=== PATIENT | female | born 1985 | race Caucasian/White ===

== ENCOUNTER 2024-02-15 09:15 | Outpatient (AMB) | payer OTHER, SELFPAY ==
--- NOTE | 2024-02-15 09:18 | MHC.PC.OV ---
Vital Signs 02/15/24 09:19 Height 5 ft 6 in Weight 176 lb BMI 28.4 BP 110/72 Blood Pressure Location Lt brachial Position Sitting Pulse 74 Pulse Source Pulse Oximeter Pulse Oximetry (%) 99 Oxygen Delivery Method Room Air Intake Visit Reasons: Est. Care requesting PE Intake Note: pt is here to establish care. Requesting PE. Pap done w/ Ariana. Unknown date Allergies kiwi Allergy (Intermediate, Verified 02/15/24 09:37) Itching apples Allergy (Intermediate, Uncoded 02/15/24 09:37) Itching Medication List - Last Reconciled 02/15/24 by LAYO Zepeda No Known Home Meds Tobacco use date assessed: 02/15/24 Dental Screening Dental Screen Date: 02/15/24 Did you have a dental visit in the last 12 months?: No Did you have a dental problem in the last 6 months where you did not have access to dental care?: No Was dental information given to patient?: No HPI HPI Comments History of Present Illness Details Patient is a 39-year-old female in today for physical exam who I am meeting for the 1st time. Patient is up-to-date with the TD immunization. Patient is due for Pap smear, will refer. Patient is due for mammogram, will order. Will order fasting labs. PFSH Surgical History H/O dilation and curettage Family History Mother CVA (cerebral vascular accident) Father Hypertension Maternal Uncle FH: kidney cancer Social History Housing: House Patient Tobacco Use Status: Former Tobacco user e-Cigarette/Vaping Use: Currently Using service: No Current occupational status: employed Current occupational exposures/hazards: No Cognitive needs: No Hearing needs: No Vision needs: No Questionnaire PHQ-9 Over the last 2 weeks, how often have you been bothered by any of the following problems? 1. Little interest or pleasure in doing things: not at all 2. Feeling down, depressed, or hopeless: not at all 3. Trouble falling or staying asleep, or sleeping too much: not at all 4. Feeling tired or having little energy: not at all 5. Poor appetite or overeating: not at all 6. Feeling bad about yourself - or that you are a failure or have let yourself or your family down: not at all 7. Trouble concentrating on things, such as reading the newspaper or watching television: not at all 8. Moving or speaking so slowly that other people could have noticed. Or the opposite - being so fidgety or restless that you have been moving around a lot more than usual: not at all 9. Thoughts that you would be better off or of hurting yourself in some way: not at all Total score: 0 Depression Screening Interpretation: Negative Depression Screening Done: Yes 63323 - PHQ-9 Billing: Yes Source: Developed by Drs. Marquise Hernandez, Lorraine Grewal, Will Subramanian and colleagues, with an educational norma from [employer]. Thrive Questionnaire Date Thrive assessed: 02/15/24 I am a: Patient What is your living situation today?: I have a steady place to live Within the past 12 months, did the food you bought not last and you didn't have the money to get more?: Never true Within the past 12 months, did you worry whether your food would run out before you got money to buy more?: Never true Do you have trouble paying for medicines?: No Do you have trouble getting transportation to medical appointments?: No Do you have trouble paying your heating and electricity bill?: No Do you have trouble taking care of your child, family member or friend?: No Do you have trouble with day-to-day activities such as bathing, preparing meals, shopping, managing finances, etc.?: No Are you currently unemployed and looking for a job?: No Are you interested in more education?: No Please select the resources that you would like help with: None THRIVE Score: 0 AUDIT C Alcohol Use Questionnaire (AUDIT-C) 1. How often do you have a drink containing alcohol?: Monthly or less 2. How many drinks containing alcohol do you have on a typical day when you are drinking?: 3 or 4 3. How often do you have six or more drinks on one occasion?: Never Total Score: 2 MARIA TERESA-7 AMB Questionnaire MARIA TERESA-7 Date MARIA TERESA - 7 assessed: 02/15/24 Feeling nervous, anxious, or on edge: 0 = Not at all Not being able to stop or control worryin = Not at all Worrying too much about different things: 0 = Not at all Trouble relaxin = Not at all Being so restless that it is hard to sit still: 0 = Not at all Becoming easily annoyed or irritable: 0 = Not at all Feeling afraid as if something awful might happen: 0 = Not at all Total MARIA TERESA-7 score (0-4 normal; 5-9 mild; 10-14 moderate; 15-21 severe): 0 Source: Developed by Drs. Marquise Hernandez, Lorraine Grewal, Will Subramanian and colleagues, with an educational norma from [employer]. MARIA TERESA-7 Assessment Billing MARIA TERESA-7 Assessment Tool: MARIA TERESA-7 Assessment 34510 Review of Systems Const All systems reviewed & are unremarkable except as noted in HPI and below Physical exam (Primary Care) Vital Signs: Last Vital Signs Pulse 74 02/15/24 09:19 BP 110/72 02/15/24 09:19 Pulse Ox 99 02/15/24 09:19 Oxygen Delivery Method Room Air 02/15/24 09:19 Care Plan Goal for BP management: Blood pressure is controlled. BMI result Body Mass Index 28.4 Depression Screening Interpretation: Negative Const Other: Appearance: Alert.? Oriented X3.? No acute distress.? Head: Normocephalic, atraumatic, no step-offs or deformities Eyes: Pupils equal, round and reactive to light.? ENT: Pharynx normal.?TM intact and pearly ribeiro. Neck: Normal inspection.? Neck supple.?Full ROM. CVS: Normal heart rate and rhythm.? Pulses normal.? Respiratory: No respiratory distress.? Breath sounds normal.? Abdomen: Soft and nontender.? Skin: Skin warm and dry.? Normal skin color.? Normal skin turgor.? Extremities: No lower extremity edema.? No calf ttp. 5/5 strength to bilateral upper and lower extremities Back: No midline tenderness, no C-spine tenderness, full range of motion, no CVA tenderness bilaterally Neuro: Oriented X 3.? No motor deficit.? No sensory deficit. CN 2-12 intact Assessment and Plan Assessment & Plan (1) Physical exam: Comment: Patient is up-to-date with the TD immunization. Patient is due for Pap smear, will refer. Patient is due for mammogram, will order. Will order fasting labs. Code(s): Z00.00 - Encounter for general adult medical examination without abnormal findings (2) Constipation: Comment: patient reports constipation is increased with poor diet. Patient has been instructed to increase fiber intake, can utilize senna. Code(s): K59.00 - Constipation, unspecified Qualifiers: Constipation type: unspecified constipation type Qualified Code(s): K59.00 - Constipation, unspecified Plan Will follow up with lab results Orders: Orders Vitamin B6 Today Z13.21 - Encounter for screening for nutritional disorder Complete Blood Count Auto Diff Today Z13.0 - Encounter for screening for diseases of the blood and blood-forming organs and certain disorders involving the immune mechanism Comprehensive Met. Panel Today Z13.0 - Encounter for screening for diseases of the blood and blood-forming organs and certain disorders involving the immune mechanism Lipid Panel Today Z13.220 - Encounter for screening for lipoid disorders MM tomosynthesis screening BI Today Z12.31 - Encounter for screening mammogram for malignant neoplasm of breast MMR IgG Measles Mumps Rubella Today Z11.59 - Encounter for screening for other viral diseases Vitamin D 25-OH (D2 and D3) Today Z13.21 - Encounter for screening for nutritional disorder Vitamin B12 Today Z13.21 - Encounter for screening for nutritional disorder UA CC w/rflx Micro + Cult Today Z13.89 - Encounter for screening for other disorder TSH reflex Free T4 Today Z13.29 - Encounter for screening for other suspected endocrine disorder Referrals CLINICAL LABORATORY ASSISTANT Referral Z12.4 - Encounter for screening for malignant neoplasm of cervix Coding Level of Care Code New Pt Prev Care 40-64y(85116) Diagnoses Physical exam Z00.00 Constipation, unspecified constipation type K59.00 Constipation type: unspecified constipation type Additional Codes MARIA TERESA-7 Assessment Billing - MARIA TERESA-7 Assessment Tool: MARIA TERESA-7 Assessment 08002 ([id number]) Time Spent (min) 26
[2024-02-15 09:19] VITALS: BP 110/72; PULSE 74; O2SAT 99; BMI 28.4
== END 2024-02-15 09:53 | disposition home or self-care (01) ==
PROVIDERS: PCP Internal Medicine; Visit Provider Nurse Practitioner Primary Care
DX: Z00.00 Encounter for general adult medical examination without abnormal findings (principal); K59.00 Constipation, unspecified
CPT/HCPCS: 99386

== ENCOUNTER 2024-02-16 10:01 | Outpatient (REF) | payer OTHER, SELFPAY ==
[2024-02-16 13:09] LABS: Appearance Urine Turbid; Color Urine Yellow; Glucose Urine UA Negative (Negative); Leukocyte Esterase Urine Small (1+) (Negative); Nitrite Urine Negative (Negative); Specific Gravity - Urine 1.025 (1.005-1.025); UMIC TRIGGER UACC YES; Urine Blood Negative (Negative); Urine Ketones Negative (Negative); Urine Protein Negative (Neg-Trace)
[2024-02-16 13:10] LABS: MANUAL DIFF FLAG NO
[2024-02-16 13:31] LABS: Basophils Percent Auto 0.6 % (0-2); Eosinophils Absolute Auto 0.1 X10*3/uL (0.0-0.4); Eosinophils Percent Auto 1.2 % (0-4); Hematocrit 41.6 % (37.0-47.0); Imm Gran Abs Auto 0.03 X10*3/uL (0.00-0.03); Imm Gran Pct Auto 0.4 % (0.0-0.4); Lymphocytes Absolute Auto 1.8 X10*3/uL (1.2-4.9); Mean Corpuscular HGB Conc 33.7 g/dl (31.0-35.0); Mean Corpuscular Hemoglobin 31.1 pg (27.0-33.0); Mean Corpuscular Volume 92.4 fL (80.0-98.0); Mean Platelet Volume 11.3 fL (9.4-12.3); Monocytes Absolute Auto 0.4 X10*3/uL (0.1-1.2); Monocytes Percent Auto 5.5 % (2-11); Neutrophils Absolute Auto 4.6 x10*3/uL (2.0-8.3); Neutrophils Percent Auto 66.3 % (45-73); Platelet Count 263 X10*3/uL (160-400); Red Cell Distribution Width 11.9 % (11.0-16.0); White Blood Count 6.9 X10*3/uL (4.8-10.8)
[2024-02-16 13:35] LABS: Bacteria Urine Trace (None Seen); Hyaline Casts Urine 0-2 /LPF (0-2); RBC Urine 0-2 /HPF (0-2); UACC Culture Trigger YES; WBC Urine 0-5 /HPF (0-5)
[2024-02-16 13:56] LABS: Alanine Aminotransferase 14 U/L (0-31); Albumin Level 4.4 g/dL (3.5-5.0); Alkaline Phosphatase 57 U/L (39-117); Anion Gap 12 (12-20); Aspartate Amino Transferase 11 U/L (5-31); Bilirubin Total 0.9 mg/dL (0.0-1.0); Blood Urea Nitrogen 14 mg/dL (9-16); Calcium 9.3 mg/dL (8.4-10.2); Carbon Dioxide 21 mmol/L (22-29); Chloride 111 mmol/L (96-108); Cholesterol 155 mg/dL (<200); Estimated Glomerular Filt Rate > 60; Glucose Random 88 mg/dL (60-115); HDL Cholesterol 51 mg/dL (>40); LDL Cholesterol Calculated 91 mg/dL (<100); Sodium 140 mmol/L (135-145); TSH reflex Free T4 2.75 uIU/mL (0.32-4.0); Total Protein 7.2 g/dL (6.5-8.0); Triglycerides 67 mg/dL (<150)
[2024-02-16 14:19] LABS: Vitamin B12 288 pg/mL (200-900)
[2024-02-20 16:48] LABS: Vitamin D 25-OH, D2 <4 ng/mL; Vitamin D 25-OH, D3 24 ng/mL; Vitamin D 25-OH, Total 24 ng/mL (30-100)
[2024-02-21 14:48] LABS: Vitamin B6 16.4 ng/mL (2.1-21.7)
== END 2024-02-16 10:02 | disposition home or self-care (01) ==
LOC: HO.HMGCLDS 10:01
PROVIDERS: PCP Internal Medicine; Visit Provider Nurse Practitioner Primary Care
DX: Z13.0 Encounter for screening for diseases of the blood and blood-forming organs and certain disorders involving the immune mechanism (principal); Z13.220 Encounter for screening for lipoid disorders; Z13.21 Encounter for screening for nutritional disorder; Z13.29 Encounter for screening for other suspected endocrine disorder; Z11.59 Encounter for screening for other viral diseases
CPT/HCPCS: 36415; 80053; 80061; 81001; 82306; 82607; 84207; 84443; 85025; 86735; 86762; 86765; 87086

== ENCOUNTER 2025-02-21 10:18 | Outpatient (AMB) | payer OTHER, SELFPAY ==
[2025-02-21 10:24] VITALS: BP 118/76; PULSE 85; TEMP 37; O2SAT 98; BMI 29.9
--- NOTE | 2025-02-21 10:24 | A.OFFPC_ITS ---
Vital Signs 02/21/25 10:24 Height 5 ft 6 in Weight 185 lb BMI 29.9 BP 118/76 Blood Pressure Location Lt brachial Position Sitting Pulse 85 Pulse Source Pulse Oximeter Temp 98.6 F Temp Source Oral Pulse Oximetry (%) 98 Oxygen Delivery Method Room Air Intake Visit Reasons: annual exam Intake Note: Pt is here today for PE. Allergies kiwi Allergy (Intermediate, Verified 02/21/25 10:24) Itching apples Allergy (Intermediate, Uncoded 02/21/25 10:24) Itching Medication List - Last Reconciled 02/21/25 by Melissa Muller MD No Known Home Meds Tobacco use date assessed: 02/21/25 Dental Screening Dental Screen Date: 02/21/25 Did you have a dental visit in the last 12 months?: No Did you have a dental problem in the last 6 months where you did not have access to dental care?: No Was dental information given to patient?: Patient declined HPI annual exam HPI Details Pt presents for PE. Pt c/o L knee pain for 2 weeks, worse when walking up the stairs, no injury. Pt reports intermittent stomach upset after drinking milk or eating dairy. 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 1. Little interest or pleasure in doing things: not at all 2. Feeling down, depressed, or hopeless: not at all 3. Trouble falling or staying asleep, or sleeping too much: not at all 4. Feeling tired or having little energy: not at all 5. Poor appetite or overeating: not at all 6. Feeling bad about yourself - or that you are a failure or have let yourself or your family down: not at all 7. Trouble concentrating on things, such as reading the newspaper or watching television: not at all 8. Moving or speaking so slowly that other people could have noticed. Or the opposite - being so fidgety or restless that you have been moving around a lot more than usual: not at all 9. Thoughts that you would be better off or of hurting yourself in some way: not at all Total score: 0 Depression Screening Interpretation: Negative Depression Screening Done: Yes 60321 - PHQ-9 Billing: Yes Source: Developed by Drs. Marquise Hernandez, Lorraine Grewal, Will Subramanian and colleagues, with an educational norma from [employer]. Thrive Questionnaire Date Thrive assessed: 02/21/25 I am a: Patient What is your living situation today?: I have a steady place to live Within the past 12 months, did the food you bought not last and you didn't have the money to get more?: Never true Within the past 12 months, did you worry whether your food would run out before you got money to buy more?: Never true Do you have trouble paying for medicines?: No Do you have trouble getting transportation to medical appointments?: No Do you have trouble paying your heating and electricity bill?: No Do you have trouble taking care of your child, family member or friend?: No Do you have trouble with day-to-day activities such as bathing, preparing meals, shopping, managing finances, etc.?: No Are you currently unemployed and looking for a job?: No Are you interested in more education?: No Please select the resources that you would like help with: None Currently or been in a relationship where the following occur: No concerns reported THRIVE Score: 0 AUDIT C Alcohol Use Questionnaire (AUDIT-C) 1. How often do you have a drink containing alcohol?: 2-4 times a month 2. How many drinks containing alcohol do you have on a typical day when you are drinking?: 1 or 2 3. How often do you have six or more drinks on one occasion?: Never Total Score: 2 MARIA TERESA-7 AMB Questionnaire MARIA TERESA-7 Date MARIA TERESA - 7 assessed: 02/21/25 Feeling nervous, anxious, or on edge: 0 = Not at all Not being able to stop or control worryin = Not at all Worrying too much about different things: 0 = Not at all Trouble relaxin = Not at all Being so restless that it is hard to sit still: 0 = Not at all Becoming easily annoyed or irritable: 0 = Not at all Feeling afraid as if something awful might happen: 0 = Not at all Total MARIA TERESA-7 score (0-4 normal; 5-9 mild; 10-14 moderate; 15-21 severe): 0 Source: Developed by Drs. Marquise Hernandez, Lorraine Grewal, Will Subramanian and colleagues, with an educational norma from [employer]. MARIA TERESA-7 Assessment Billing MARIA TERESA-7 Assessment Tool: MARIA TERESA-7 Assessment 38710 Review of Systems Const All systems reviewed & are unremarkable except as noted in HPI and below Eyes Reports no additional complaints ENT Reports no additional complaints Card Reports no additional complaints Resp Reports no additional complaints GI Reports no additional complaints Reports no additional complaints Physical exam (Primary Care) Vital Signs: Last Vital Signs Temp 98.6 F 02/21/25 10:24 Pulse 85 02/21/25 10:24 BP 118/76 02/21/25 10:24 Pulse Ox 98 02/21/25 10:24 Oxygen Delivery Method Room Air 02/21/25 10:24 BMI result Body Mass Index 29.9 Tobacco/Smoking Status: Tobacco use Status Tobacco use date assessed 02/21/25 02/21/25 10:30 Patient Tobacco Use Status Former Tobacco user 02/21/25 10:30 e-Cigarette/Vaping Use Currently Using 02/21/25 10:30 PHQ-9: PHQ-9 Score PHQ-9: Total score 0 02/21/25 10:30 Depression Screening Interpretation: Negative Thrive Assessment: Date of Thrive Assessment Date Thrive assessed 02/21/25 02/21/25 10:30 Currently or been in a relationship where the following occur: No concerns reported Const General: no acute distress HENMT Head: Yes normal to inspection Ears: hearing grossly normal bilaterally Face and sinus: Yes normal facial exam Mouth: Normal oral and palatal mucosa present Eyes General: appearance normal, both eyes and all related structures Neck Neck: Yes no lymphadenopathy and Yes supple Resp Effort & Inspection: normal respiratory effort Auscultation: clear to auscultation bilaterally Cardio Rhythm: regular rhythm Heart sounds: S1 normal heart sound present and S2 normal heart sound present GI Inspection: Yes normal to inspection Palpation (GI): Soft to palpation Percussion: Yes normal to percussion Auscultation: normal bowel sounds Coding Level of Care Code Est Pt Prev Care 40-64y(97090) Diagnoses Physical exam Z00.00 Additional Codes MARIA TERESA-7 Assessment Billing - MARIA TERESA-7 Assessment Tool: MARIA TERESA-7 Assessment 98718 ([id number]) PHQ-9 - 11328 - PHQ-9 Billing: Yes ([id number]) Assessment & Plan Assessment & Plan (1) Physical exam: Code(s): Z00.00 - Encounter for general adult medical examination without abnormal findings Category: Medical Plan: Well-balanced diet regular physical activity discussed with the patient. She is up-to-date with the Pap smear and mg by health unit clerk. For lactose intolerance patient was advised to avoid dairy products and take Lactaid. For chronic left knee strain knee exercises given to the patient
--- OUTSIDE RECORDS SUMMARY | 2025-02-21 10:53 | XMS_ITS | Clinical Summary ---
Author Organization [facility] [address] [place] [address] [place] [address] Phone Care Team Providers Care Skating Rink Manager Name Role Phone Physician, No Pcp Primary Care Provider Unavaila ble Allergies Active Allergy Reactions Criticality Noted Date Comments Other High 12/16/2006 Seasonal Allergies Other Reaction(s): Runny Nose/Rhinitis Medications medroxyPROGEST ERone (Depo-Provera) 150 mg/mL injection Inject 1 mL (150 mg total) into the shoulder, thigh, or buttocks 1 (one) time for 1 dose. 1 each 5 Active medroxyPROGEST ERone 150 mg/mL injection Inject 1 mL into the muscle Every 3 Months. 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 (05/10/2024): CXR neg, advised INH but pt never took medicine Encounters Date Type Department Care Team Description 01/25/2025 11:00 AM EDT Clinical Support Obstetrics and Gynecology [address] [phone] Surveillance of contraceptive injection (Primary Dx) from Last 3 Months Immunizations Name Administration Dates Next Due Diptheria & Tetanus, 6wks to less than 7yo 08/09 PPD Test 10/16/2008,11/15/2002 Tdap Tetanus diptheria acell ular pertussis (Boostrix; Adacel) 7yo and older 09/25/2016 Surgical History Surgery Date Site/Laterality Comments OTHER SURGICAL HISTORY 2008 PROCEDURE: WI DILATION & CURETTAGE DX&/THER NONOBSTETRIC; COMMENT: In management of a Missed Medical History Medical History Date Comments Historical Medical DX 10/16/2008 DX:NO ACTI VE MEDICAL PROBLEMS 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:PPD positive; COMMENT: CXR positive, advised INH but pt never took medicine Family History Medical History Relation Name Comments Hyperlipidemia Father from COV ID Diabetes Maternal Grandmother at 90 Depression Mother Breast cancer Neg Hx Cervical cancer Neg Hx Ovarian cancer Neg Hx Uterine cancer Neg Hx Relation Name Status Comments Brother 1 Alive Brother 2 Alive Daughter Alive Father Maternal Grandfather Maternal Grandmother Mother Alive Paternal Grandfather Paternal Grandmother Son 1 Alive Son 2 Alive Social History Tobacco Use Types Packs/Day Years Used Date Smoking Tobacco: Former Cigarettes Q uit: 11/14/2006 Smokeless Tobacco: Never Alcohol Use Standard Drinks/Week Comments Yes 0 (1 standard drink = 0.6 oz pur e alcohol) occ Comments No Sex and Gender Information Value Date Recorded Sex Assigned at Not on file Legal Sex Female 10:10 PM EST Gender Identity Not on file Sexual Orientation Not on file Obstetrics History Para Term AB IAB SAB Ectopic Multiple Livin g Live Births 6 4 3 0 2 0 2 0 0 4 4 Date Outcome GA Total Labor Labor/2nd/3rd Weight Sex Type Anes PTL Yasmin A1 A5 Name Clin 2006 Term 40w 3d 18h 00m/ 3317 g (117 oz) M Vag-S pont None Livin g Darrell 2008 SAB 11w 0d SAB Neona stefany Demis e 2010 SAB 4w0 d SAB Neona stefany Demis e 2011 Term 3459 g (122 oz) F Vag-S pont None Livin g Jaznyn 2013 Term 3941 g (139 oz) M Vag-S pont None [facility] Comments:rapid deliver y 2016 Para 39w 4d 4082 g (144 oz) F Vag-S pont None Livin g 8 9 Seth Villegas Delivery Location:[facility] Last Filed Vital Signs Vital Sign Reading Time Taken Comments Blood Pressure 107/72 01/25/2025 11:17 AM EDT Pulse 73 01/25/2025 11:17 AM EDT Temperature - - Respiratory Rate 14 01/25/2025 11:17 AM EDT Oxygen Saturation - - Inhaled Oxygen Concentration - - Weight 85.1 kg (187 lb 9.6 oz) 01/25/2025 11:17 AM EDT Height 167.6 cm (5' 6 ) 11/01/2023 11:40 AM EDT Body Mass Index 30.28 11/01/2023 11:40 AM EDT Plan of Treatment Upcoming Encounters Date Type Department Care Team (Late st Contact Info) Description 04/26/2025 3:00 PM EDT Clinical Support Obstetrics and Gynecology [address] [phone] Health Maintenance Due Date Last Done Comments Breast Cancer Screening 1984 Hepatitis B Vaccines (1 of 3 - 19+ 3-dose series) 12/31/2002 Social Influencers of Health Screening 07/11/2022 COVID-19 Vaccine (2023-2 5 season) 2024 06/24/2022, 11/20/2020, 10/30/2020 Influenza Vaccine (#1) 2025 , 06/12/2022 Depression Screening 07/07/2025 07/07/2024 Cervical Cancer Screening: HPV 09/25/2026 09/25/2021 DTaP,Tdap,and Td Vaccines (3 - Td or Tdap) 09/25/2026 09/25/2016, 08/09/1998 Hepatitis C Screening Completed 11/21/2008 HIV Screening Completed 04/10/2016 HIB Vaccines Aged Out No longer eligi ble based on patient's age to complete this topic HPV Vaccines Aged Out No longer eligi ble based on patient's age to complete this topic Hepatitis A Vaccines Aged Out No long er eligible based on patient's age to complete this topic IPV Vaccines Aged Out No longer eligi ble based on patient's age to complete this topic MMR Vaccines Aged Out No longer eligi ble based on patient's age to complete this topic Meningococcal ACWY Vaccine Aged Out N o longer eligible based on patient's age to complete this topic Meningococcal B Vaccine Aged Out No l onger eligible based on patient's age to complete this topic Pneumococcal Vaccine: Pediatrics (0 to 5 Years) and At-Risk Patients (6 to 49 Years) Aged Out No longer eligible b ased on patient's age to complete this topic RSV Immunization Patients Under 20 months Aged Out No longer eligible b ased on patient's age to complete this topic Varicella Vaccines Aged Out No longer eligible based on patient's age to complete this topic Procedures Procedure Name Priority Date/Time Associated Diagnosis Comments HPV Routine 09/25/2021 HIV SCREENING Routine 04/10/2016 HEPATITIS C SCREENING Routine 11/21/2008 from Last 3 Months or Most Recently Relevant to Health Maintenance Results * Cervical Cancer Screening: HPV (09/25/2021) Pathologist [facility] Cervical Cancer Screening: HPV Negative, Abstracted [facility] Provider HEALTH MAINTENANCE Final Result * HIV Screening (04/10/2016) Pathologist [facility] HIV Screening Abstracted [facility] Provider HEALTH MAINTENANCE Final Result * Hepatitis C Screening (11/21/2008) Pathologist [facility] Hepatitis C Screening Abstracted [facility] Provider HEALTH MAINTENANCE Final Result from Last 3 Months or Most Recently Relevant to Health Maintenance Insurance [facility] Care Teams Skating Rink Manager Relationship Specialty Start Date End Date Physician, No Pcp PCP - General 06/16/24
== END 2025-02-21 11:21 | disposition home or self-care (01) ==
LOC: HO.HMCC 10:19
PROVIDERS: PCP Internal Medicine; Visit Provider Internal Medicine
DX: Z00.00 Encounter for general adult medical examination without abnormal findings (principal)

== ENCOUNTER → 2025-02-21 10:18 | Outpatient (BNVA) | payer OTHER, SELFPAY | PROVIDERS: PCP Internal Medicine; Visit Provider Internal Medicine | DX: Z00.00 Encounter for general adult medical examination without abnormal findings (principal); M25.562 Pain in left knee | CPT/HCPCS: 96127 ==